=== PATIENT | female | born 2000 | race Two or more races ===

== ENCOUNTER 2025-07-16 21:14 | Emergency (ER) | payer OTHER ==
[2025-07-16 21:18] VITALS: BP 132/83; PULSE 83; RESP 18; TEMP 98.1; BMI 26.6
[2025-07-16] MEDS ORDERED: ONDANSETRON 4 MG/2 ML VIAL ONE (21:33)
[2025-07-16] MEDS ORDERED: KETOROLAC TROMETHAMINE 30 MG/1 ML VIAL ONE (21:33)
[2025-07-16] MEDS: KETOROLAC TROMETHAMINE 30 MG/1 ML VIAL IVPUSH ONE (21:38)
[2025-07-16] MEDS: ONDANSETRON 4 MG/2 ML VIAL IVPUSH ONE (21:38)
[2025-07-16] MEDS: SODIUM CHLORIDE 1,000 ML IV ONE (21:38)
[2025-07-16 21:41] LABS: ABSOLUTE IMMATURE GRANULOCYTES 0.01 x10^3/uL (0.0-0.031); BASOPHILS # 0.03 x10^3/uL (0.01-0.08); EOSINOPHIL % 3.2 % (0.7-5.8); EOSINOPHILS # 0.30 x10^3/uL (0.04-0.36); MCHC 31.8 g/dl (32.2-35.5); MEAN CELL VOLUME 88.1 fl (79.4-94.8); MEAN PLT VOLUME 9.9 fl (9.4-12.3); MONOCYTE # 0.63 x10^3/uL (0.24-0.86); MONOCYTE % 6.8 % (4.7-12.5); RDW 12.3 % (12.1-16.5)
[2025-07-16 21:59] LABS: ALK PHOS 45.0 U/L (45-117); CO2 26.0 mmol/L (21-32); CREATININE 1.0 mg/dl (0.6-1.3); GLUCOSE,RANDOM 96.0 mg/dl (74-106); SGOT/AST 11.0 U/L (15-37); SGPT/ALT 9.0 U/L (7-52); TOT PROT 7.2 g/dl (6.4-8.2)
[2025-07-17 00:16] LABS: HCV DIAGNOSTIC IN-HOUSE W/RFLX NON-REACTIVE (NONREACTIVE)
[2025-07-17 00:17] LABS: HIV INTERPRETATION NEGATIVE (NEGATIVE)
== END 2025-07-16 23:02 | disposition home or self-care (01) ==
LOC: FER 21:14
PROC: 3E0333Z Introduction of Anti-inflammatory into Peripheral Vein, Percutaneous Approach (ICD-10-PCS; principal; 2025-07-16)
PROC: 3E033GC Introduction of Other Therapeutic Substance into Peripheral Vein, Percutaneous Approach (ICD-10-PCS; 2025-07-16)
PROC: 3E0337Z Introduction of Electrolytic and Water Balance Substance into Peripheral Vein, Percutaneous Approach (ICD-10-PCS; 2025-07-16)
DX: R10.30 Lower abdominal pain, unspecified (principal); R11.0 Nausea; R63.0 Anorexia
CPT/HCPCS: 36415; 74176-TC; 80053; 81003; 81015; 81025; 85025; 86803; 87086; 87389; 99285-25